=== PATIENT | male | born 1990 | race African-American/Black ===

== ENCOUNTER 2020-12-09 01:44 | Emergency (ER) | payer SELFPAY ==
[~2020-12-09] VITALS: Ht 180.3 cm; Wt 97.0 kg
[~2020-12-09 01:44] MED LIST: LORA-254 PO; TRAZ150T49 PO
[2020-12-09] MEDS ORDERED: IV NORMAL SALINE 1,000ML 1,000 ML IV ONE (02:00)
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
[2020-12-09 02:38] LABS: BASO % 0 % (0-3); EOS % 0 % (0-3); HEMATOCRIT 47.2 % (39.0-53.0); LYMPH # 1.5 x10^3/uL (1.0-4.8); LYMPH % 15 % (24-48); MEAN CORPUSCULAR HEMOGLOBIN 25 pg (25-35); MEAN CORPUSCULAR HGB CONC 32 g/dL (31-37); MEAN CORPUSCULAR VOLUME 77 fL (79-100); MONO # 0.7 x10^3/uL (0.0-1.1); MONO % 7 % (0-9); NEUT # 7.8 x10^3uL (1.8-7.7); NEUT % 78 % (31-73); PLATELET COUNT 223 x10^3/uL (140-400); RED BLOOD COUNT 6.12 x10^6/uL (4.30-5.70); RED CELL DISTRIBUTION WIDTH 16.3 % (11.5-14.5)
[2020-12-09 02:53] LABS: CALCIUM 8.9 mg/dL (8.5-10.1); GFR 106.2; POTASSIUM 3.2 mmol/L (3.5-5.1)
[2020-12-09 03:05] LABS: ALBUMIN 4.3 g/dL (3.4-5.0); ALBUMIN/GLOBULIN RATIO 1.3 (1.0-1.7); TOTAL BILIRUBIN 0.6 mg/dL (0.2-1.0); TOTAL PROTEIN 7.7 g/dL (6.4-8.2)
[2020-12-09 03:20] VITALS: BP 112/45
--- NOTE | 2020-12-09 04:20 | EKG ---
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
[2020-12-09] MEDS ORDERED: POTASSIUM CHLORIDE 20 MEQ TABLET.ER. PO ONE (06:00)
== END 2020-12-09 13:01 | disposition home or self-care (01) ==
LOC: ER 01:44
DX: R45.851 Suicidal ideations (principal); R44.1 Visual hallucinations; F16.10 Hallucinogen abuse, uncomplicated; F12.10 Cannabis abuse, uncomplicated; E87.6 Hypokalemia; F41.9 Anxiety disorder, unspecified; F32.9 Major depressive disorder, single episode, unspecified; F17.210 Nicotine dependence, cigarettes, uncomplicated; Z20.822 Contact with and (suspected) exposure to COVID-19; Z88.0 Allergy status to penicillin
CPT/HCPCS: 36415; 80053; 82553; 83735; 84484; 85025; 87426; 93005; 96361; 96374; 99285; C9803; G0480; J2060; J7030; U0003